=== PATIENT | female | born 1945 | race Caucasian/White ===

== ENCOUNTER → 2016-09-30 | Outpatient (CLI) | payer OTHER ==
[~2016-09-30] MED LIST: ASCA500 PO; ATOR10TA88 PO; CALC600T9 PO; CRAN1CAP PO; ESOM20CA PO; LYSI100010 PO; MULT-1027 PO; OMEG10007 PO; PSYL48.58 PO; SENNTAB23 PO; VTMB122500 PO
== END | disposition home or self-care (01) ==
LOC: C.PAPS 12:00
PROVIDERS: ATTEND Obstetrics & Gynecology
DX: Z12.4 Encounter for screening for malignant neoplasm of cervix (principal)

== ENCOUNTER → 2016-10-02 | Outpatient (CLI) | payer OTHER ==
--- NOTE | 2016-10-02 12:36 | MAMMOGRAPHY REPORT ---
UNILATERAL LEFT DIGITAL DIAGNOSTIC MAMMOGRAM TOMOSYNTHESIS WITH CAD AND TARGETED LEFT ULTRASOUND: 08/2017 CLINICAL HISTORY: The patient reports increasing pain in her left upper outer quadrant for approxima tely 2-3 months. She denies any palpable lumps. TECHNIQUE: Breast tomosynthesis in addition to standard 2D mammography was performed. Current study was also evaluated with a Computer Aided Detection (CAD) system. Left CC and MLO 2-D and tomosynth esis images were obtained. COMPARISON: Comparison is made to exams dated: 07/16/2016 mammogram, 06/26/2014 mammogram, 5 mammogram, 06/23/2013 mammogram, 06/22/2012 mammogram - [facility], and 04/22/2011 [facility]. BREAST COMPOSITION: The tissue of the left breast is heterogeneously dense, which may obscure small masses. FINDINGS: There are no suspicious masses, calcifications, or areas of architectural distortion note d in the left breast. There has been no significant interval change compared to prior exams. Small cluster of benign-appearing calcifications in the left upper outer quadrant is stable. A triangle marker kumar the site of pain in the left upper outer quadrant; no suspicious masses or other suspic ious findings are seen in this region. Targeted ultrasound was performed of the area of pain pointed out by the patient, centered in the le ft breast at 1:00, 8 cm from the nipple. Sonographically normal tissue is seen in this region, with out evidence of a mass or other suspicious sonographic abnormality. IMPRESSION: ACR BI-RADS CATEGORY 2: BENIGN, TARGETED ULTRASOUND ACR BI-RADS CATEGORY 2: BENIGN No suspicious mammographic or sonographic abnormality seen at the site of left breast pain. There i s no mammographic or targeted sonographic evidence of malignancy. Recommend clinical follow-up for left breast pain, and recommend routine bilateral screening mammograms which are due June 2017. The patient has been verbally notified of the results. Approximately 10% of breast cancers are not detected with mammography. A negative mammographic repor t should not delay biopsy if a clinically suggestive mass is present. Shayy Gallegos M.D. ah/:10/02/2016 09:53:23 [facility] Teacher: Marlen Rao RT(R)(M), [facility] letter sent: Normal 1/2 BI-RADS Code: ACR BI-RADS Category 2: Benign Ultrasound BI-RADS: ACR BI-RADS Category 2: Benign
== END | disposition home or self-care (01) ==
LOC: C.MAMM 09:15
PROVIDERS: ATTEND Obstetrics & Gynecology
DX: Z12.31 Encounter for screening mammogram for malignant neoplasm of breast (principal)

== ENCOUNTER → 2016-10-17 | Outpatient (CLI) | payer OTHER ==
--- NOTE | 2016-10-17 12:23 | DIAGNOSTIC IMAGING REPORT ---
LEFT SHOULDER MIN 2 VIEWS CLINICAL HISTORY: LEFT SHOULDER PAIN COMPARISON: None. DISCUSSION: No acute fractures or dislocations are visualized. There is minor glenoid spurring. No destructive lesions are visualized. IMPRESSION: 1. Mild degenerative change. No acute fractures or subluxations identified Electronically signed by: Rakan Walton M.D. 10/17/2016 12:21 PM Dictated Date/Time: 10/17/2016 12:20 PM
== END | disposition home or self-care (01) ==
LOC: C.RDSM 11:15
PROVIDERS: ATTEND Physical Medicine & Rehabilitation Sports Medicine
DX: M25.519 Pain in unspecified shoulder (principal)

== ENCOUNTER → 2017-02-13 | Outpatient (CLI) | payer OTHER ==
[~2017-02-13] MED LIST changes: +ATOR10TA82 PO; -ATOR10TA88 PO
--- NOTE | 2017-02-13 10:27 | DIAGNOSTIC IMAGING REPORT ---
LEFT SHOULDER INJECTION UNDER FLUOROSCOPIC GUIDANCE CLINICAL HISTORY: Left shoulder pain. Injection for MR arthrogram. PROCEDURE: The risks, benefits, and alternatives to the procedure were discussed with the patient. Written informed consent was obtained. The patient was placed supine on the fluoroscopy table, and a left shoulder injection was performed under fluoroscopic guidance. The area was prepped and draped in the usual sterile fashion. The skin and soft tissues anesthetized with local 1% lidocaine. The left shoulder joint was accessed utilizing a 22-gauge needle, and approximately 5 cc of a mixture of gadolinium contrast, Optiray 300, and saline was injected into the joint space under fluoroscopic guidance. There was normal distention of the capsule. The procedure was well tolerated and without immediate complication. The patient was then transferred to MRI for MR arthrography. FLUOROSCOPY TIME: 19 seconds. IMPRESSION: Unremarkable injection of the left shoulder under fluoroscopic guidance. Electronically signed by: Ranjit Kam M.D. 02/13/2017 10:26 AM Dictated Date/Time: 02/13/2017 10:26 AM
--- NOTE | 2017-02-13 11:22 | DIAGNOSTIC IMAGING REPORT ---
MR ARTHROGRAM OF THE LEFT SHOULDER CLINICAL HISTORY: Left shoulder pain. COMPARISON STUDY: Radiographs of the left shoulder dated 10/17/2016. TECHNIQUE: Following the intra-articular administration of gadolinium contrast, MR arthrogram of the left shoulder was performed utilizing various T1 and T2 weighted sequences in the axial, sagittal, coronal planes. Several sequences were repeated due to motion artifact which degrades the examination. FINDINGS: Rotator cuff: There is tendinopathy of the supraspinatous tendon. There is a large full-thickness tear identified. The tear measures approximately 11 mm in length as seen on coronal image #6. There is no musculotendinous retraction. There is also tendinopathy of the infraspinatus tendon with mild degenerative undersurface tearing. The teres minor and subscapularis tendons are intact. Contrast extends into the subacromial and subdeltoid bursae. The acromioclavicular joint is unremarkable. Biceps tendon: There is tendinopathy of the long head of the biceps with mild partial thickness tearing. The majority of the fibers remain intact and the tendon is Located within the bicipital groove. The anchor is maintained. Labrum: There is circumferential labral tearing. Shoulder joint: The joint space is well distended with interstitial reticular contrast. There is contrast seen inferior to the glenohumeral ligament/joint capsule reason concern for a HAGL lesion. The articular cartilage over the glenoid is well maintained. Cystic degenerative change is noted in the greater tuberosity of the humeral head. Musculature and soft tissues: The musculature of the shoulder is normal in bulk and signal intensity. No atrophy is seen. IMPRESSION: 1. There is tendinopathy with a large full-thickness tear of the supraspinatous tendon. No musculotendinous retraction is seen. 2. There is tendinopathy with mild degenerative undersurface tearing of the infraspinatus tendon at the leading edge. 3. Circumference labral tearing 4. Question a HAGL lesion. 5. There is tendinopathy with mild partial thickness tearing of the long head of the biceps tendon. 6. Arthritic change is noted in the greater tuberosity of the humeral head. Electronically signed by: Ranjit Kam M.D. 02/13/2017 11:21 AM Dictated Date/Time: 02/13/2017 11:08 AM
== END ==
LOC: C.MRIBC 09:42
PROVIDERS: ATTEND Physician Assistant
DX: M75.102 Unspecified rotator cuff tear or rupture of left shoulder, not specified as traumatic (principal)

== ENCOUNTER → 2017-05-12 | Day surgery (SDC) | payer OTHER ==
[2017-04-23 10:09] VITALS: Ht 158.8 cm; Wt 68.2 kg
[2017-04-24 13:21] LABS: BASO % 0.4 %; BASO ABS # 0.02 K/uL (0-0.2); COMPLETE YES; EOS % 0.9 %; HEMATOCRIT 40.3 % (37-47); LYMPH % 42.3 %; LYMPH ABS # 1.89 K/uL (1.2-3.4); MEAN CORPUSCULAR HEMOGLOBIN 31.3 pg (25-34); NEUT % 50.4 %; PLATELET COUNT 213 K/uL (130-400); RED BLOOD COUNT 4.38 M/uL (4.2-5.4); WHITE BLOOD COUNT 4.47 K/uL (4.8-10.8)
[2017-04-24 13:51] LABS: BUN/CREATININE RATIO 27.5 (10-20); CALCIUM 8.7 mg/dl (8.5-10.1); CREATININE 0.61 mg/dl (0.60-1.20); POTASSIUM 3.7 mmol/L (3.5-5.1)
[~2017-05-12] VITALS: Ht 158.8 cm; Wt 68.2 kg
[~2017-05-12] MED LIST changes: -ATOR10TA82 PO; +ATOR10TA88 PO; +ATROPINE SULFATE 0.1 MG/ML 5ML SYR IV PRN; +CEFAZOLIN 2000 MG/60 ML D5W IV SCH; +DEXAMETHASONE SOD INJ 4 MG/ML VIAL ONE; +EpHEDrine SULFATE INJ 50 MG/ML AMP IV PRN; +EpHEDrine SULFATE INJ 50 MG/ML AMP ONE; +EpINEphrine HCL INJ 1 MG/ML 5ML SYRINGE ONE; +FENTANYL CITRATE INJ 50 MCG/1 ML 2 ML VIAL IV PRN; +FENTANYL CITRATE INJ 50 MCG/1 ML 2 ML VIAL ONE; +LACTATED RINGER'S 1000ML 1,000 ML IV SCH; +LIDOCAINE HCL 2% 2 ML VIAL (20MG/ML) ONE; +METOCLOPRAMIDE HCL INJ 5 MG/ML 2 ML VIAL IV PRN; +MIDAZOLAM HCL 1 MG/ML 2ML VIAL ONE; +ONDANSETRON INJ 2 MG/ML 2 ML VIAL IV PRN; +ONDANSETRON INJ 2 MG/ML 2 ML VIAL ONE; +OXYCODONE/ACETAMINOPHEN 5-325 TAB PO PRN; +PROPOFOL IV EMULSION 10 MG/ML 20 ML VIAL IV ONE; +ROPIVACAINE 0.5% 5 MG/ML 30 ML VIAL ONE; +SODIUM CHLORIDE 0.9% 1000ML 1,000 ML IV SCH
--- NOTE | 2017-05-12 07:40 | History & Physical Bridge Note ---
H&P Re-Evaluation Bridge Note: I have examined the patient, reviewed the History & Physical and in the interval since the performance of the History & Physical I have noted the following changes of clinical significance: consent obtained.No changes noted
--- NOTE | 2017-05-12 07:41 | Discharge Instructions ---
Discharge Instructions Date of Service May 12, 2017. Visit Reason for Visit: Left Shoulder Rotator Cuff Tear/Impingement Discharge Discharge Diagnosis / Problem: same Discharge Goals Goal(s): Decrease discomfort, Improve function Medications Stopped Medications Name(s): na Restart Stopped Medication(s): use all scripts as directed on label Activity Recommendations Activity Limitations: as noted below Lifting Limitations: until after follow-up appointment Exercise/Sports Limitations: until after follow-up appointment May Resume Sexual Activity: when tolerated Shower/Bathe: keep incision dry Driving or Machine Use: resume 3 days after discharge Anesthesia . Post Anesthesia Instructions: If you have had General Anesthesia or IV Sedation: * Do not drive today. * Resume driving when surgeon permits. * Do not make important decisions or sign legal documents today. * Call surgeon for: 1. Temperature elevations greater than 101 degrees F. 2. Uncontrollable pain. 3. Excessive bleeding. 4. Persistent nausea and vomiting. 5. Medication intolerance (nausea, vomiting or rash). * For nausea and vomiting use only clear liquids such as: tea, soda, bouillon until nausea subsides, then gradually increase diet as tolerated. * If you have any concerns or questions, call your surgeon's office. If physician is unavailable and it is an emergency, call 911 or go to the nearest emergency room. . Instructions / Follow-Up Instructions / Follow-Up The following are instructions to follow after "Shoulder Surgery" including, Acromioplasty, Rotator Cuff Repair and Instability Surgery ACTIVITY RECOMMENDATIONS: * Minimize activity after surgery. * No excessive walking, jogging, sports or laboring. * Return to activity is individualized depending on the patient and type of surgery. * Driving is not permitted until at least your first post operative visit. Please ask your doctor when it is safe to resume driving. * Expect increased discomfort with increased activity. Continue to ice the shoulder as needed. SCHOOL/WORK RECOMMENDATIONS: * You may return to sedentary work or school when you are feeling more comfortable. This is usually 3-7 days after surgery. MEDICATIONS: * You will have a prescription for pain medication and an anti-inflammatory medication after surgery. * Use the pain medication for severe pain and the anti-inflammatory for less severe pain. Once the pain medication has run out, try to use the anti-inflammatory medication. If this is not effective, contact the office for assistance. * The pain medication may cause nausea, constipation and drowsiness. You should see how they affect you before driving or similar activity. * The anti-inflammatory medication may cause stomach upset and bleeding. If this occurs let your doctor know immediately . * Take a stool softener like Colace or a laxative like Senokot to prevent constipation. DIET: * Resume previous diet. SPECIAL CARE: ICE: You have the option of an ice cooler, gel packs or ice bags. * If you have an ice cooler, refer to the instructions for that device. The ice cooler may be used continuously. * If you do not have an ice cooler, you will need to use ice bags or gel packs. Do not apply ice directly to the skin. Use a thin dressing or barbara shirt between the skin and ice bag. Apply ice for 20-30 minutes and repeat every 2-4 hours. This is especially important for the first 7-10 days after surgery. Once the pain improves, use ice as needed. ELEVATION: * You may be more comfortable sleeping in an upright position. Use the sling to elevate your arm. DRESSING: * Your dressing will be changed at your first therapy appointment approximately 4-5 days after surgery. Band-aids, tape strips or gauze may be applied. You may then change your dressing daily. * Reapply dressing followed by the EBIce cooling pad (if chosen) and then the sling. * Always wash your hands prior to touching the incision area. * Once the stitches are removed, you may leave the wound open to air or cover with gauze. * Expect some bloody drainage for the first few days after surgery. * Leave the tape strips, if present, in place for 5-7 days. * Band-aids and gauze may be changed daily. * There may be a gauze pad in your armpit area. This can be changed daily or replaced by a dry washcloth. SLING/BRACE: * You will need to use a sling or brace after surgery. The length of time the sling is used is dependent upon the type of surgery performed. * Arthroscopic Acromioplasty requires use of the sling for 2-4 weeks for comfort. * Labral procedures and Rotator Cuff Repairs require use of the sling for a longer period of time. Please check with your doctor prior to discontinuing the sling. BATHING: * You may shower or sponge-bathe immediately after surgery. The post operative shoulder dressing is mostly water-tight. You may shower right over this dressing, but be reasonably careful not to get the gauze or incision wet. * Once the dressing has been changed on the fourth or fifth day after surgery, you may shower and get the incision wet. * Wash with regular soap and water. * Do not bathe (submerge the incision), soak, swim or use a hot tub until the incision is completely healed over with normal skin and the doctor has given the OK to proceed. * There is no need to apply any ointments, powders or salves to your incision. * Do not apply alcohol or hydrogen peroxide directly to the incision. * Diluted peroxide (50:50 mixture with sterile saline) may be used to clean dried blood from around the incision area. THERAPY: * You will begin therapy four or five days after surgery. * Organized therapy with the therapist is important for the first 2-4 months after surgery depending on the type of procedure. During that time you will attend therapy 1-3 times per week. * You will also need to do daily exercises for range of motion and strength as instructed. * Patients who have a Capsular Shift Procedure will need to abide by temporary range of motion limitations. * Patients having Rotator Cuff Surgery are not allowed to actively lift their arms until 4-6 weeks after surgery. * Please check with your doctor regarding appropriate motion restrictions. FOLLOW UP VISIT: * If not already scheduled, please call the office at to schedule a follow-up appointment for 10 days after surgery and monthly thereafter. Diet Recommendations Recommended Home Diet: resume previous diet Procedures Procedures Performed: see op note Pending Studies Studies pending at discharge: no Medical Emergencies . Who to Call and When: Medical Emergencies: If at any time you feel your situation is an emergency, please call 911 immediately. . Non-Emergent Contact Non-Emergency issues call your: Specialist Call Non-Emergent contact if: temperature is above 101.5 . . "Provider Documentation" section prepared by Asad Noel. .
--- NOTE | 2017-05-12 09:53 | [facility] Post Operative Brief Note ---
Immediate Operative Summary Operative Date May 12, 2017. Pre-Operative Diagnosis LEFT SHOULDER IMPINGEMENT/ROTATOR CUFF TEAR Post-Operative Diagnosis SAME WITH SPONTANEOUS BICEPS RUPTURE Procedure(s) Performed eua/SUBACROMIAL DCOMPRESSION/SMALL ROTATOR CUFF REPAIR Surgeon IVELISSE Sales Assistant Displays Surgeon(s) BRENDON Estimated Blood Loss TRACE Findings SEE OP NOTE Fluids (cc crystalloids) 800CC Specimens NONE Drains NONE Anesthesia GENERAL/BLOCK Complication(s) None Disposition Recovery Room / PACU
--- NOTE | 2017-05-12 10:17 | OPERATIVE REPORT ---
DATE OF OPERATION: 05/12/2017 SURGEON: Dr. Noel. IMAGING ADMINISTRATOR: Roni Ramirez PA-C. No resident or fellow available. PREOPERATIVE DIAGNOSIS: Left shoulder impingement syndrome with rotator cuff tear and biceps tendinopathy. POSTOPERATIVE DIAGNOSIS: Same with spontaneous rupture of long head of biceps and small nonretracted rotator cuff tear. OPERATION PERFORMED: 1. Exam under anesthesia. 2. Diagnostic arthroscopy. 3. Incidental debridement of biceps stump. 4. Subacromial decompression. 5. Small rotator cuff repair. PROCEDURE: The patient appropriately identified, site verified, consent verified. Antibiotics confirmed as being given. The left upper extremity was examined revealing no instability. She was then sterilely prepped and draped in usual routine fashion in the beach chair position. Posterior portal made 2 cm medial and inferior to posterolateral tip of the acromion, the anterior portal made just off the edge of the AC joint. The joint was entered without difficulty. Immediately encountered was a spontaneous rupture of the biceps with a fairly large stump in the joint, this was debrided. The joint was then lightly debrided, one could see the rotator cuff tear from the articular side. This was all anteriorly in the supraspinatus attachment area. There was no other additional pathology noted. There was no major degenerative disease. The subacromial space was then entered and bursectomy completed. The CA ligament was frayed and was released. The AC joint was left alone. The hook of the acromion was flattened. The rotator cuff tear was then debrided, it could be easily identified, it was about a centimeter in size with no retraction, just in the supraspinatus area. This was debrided to a stable bed and down to raw bone and then 2 sutures placed and shuttled anteriorly. The hole made for the anchor in the tuberosity distal to its superior height and then the anchor placed, it was 4.75 anchor with excellent repair to the bed. The arm was then placed through range of motion, there was no retraction of the tear, there were no major dog ears. Some minor bursal tissue was debrided. The wound was then irrigated and then the procedure terminated. All instruments and fluid removed. Portals closed with 3-0 nylon, dressed with Xeroform, 4 x 4 gauze, ABD pads and Ioban dressing. The patient was then transferred to recovery room in satisfactory condition, having tolerated the procedure well. ESTIMATED BLOOD LOSS: Trace. CRYSTALLOID: About 800 mL DEVICES USED: 4.75 anchor screw-in PEEK with 2 suture loops. These were made by [employer]. No DVT prophylaxis required. I attest to the content of the Intraoperative Record and any orders documented therein. Any exception s are noted below.
--- NOTE | 2017-05-12 10:44 | Anesthesia Progress Nt - [facility] ---
Anesthesia Post Op Note Date & Time May 12, 2017 at 10:44 Vital Signs Pain Intensity: 0 Vital Signs Past 12 Hours Date Time Temp Pulse Resp B/P (MAP) Pulse Ox O2 Delivery O2 Flow Rate FiO2 05/12/17 10:30 Room Air 05/12/17 10:12 36.6 86 20 128/70 100 Diffusion Mask 5 05/12/17 08:55 128/81 05/12/17 08:53 58 0 100 05/12/17 08:53 59 4 100 05/12/17 08:50 146/73 05/12/17 08:48 57 0 97 05/12/17 08:48 59 05/12/17 08:45 161/77 05/12/17 08:38 63 0 05/12/17 08:38 62 0 05/12/17 08:33 58 05/12/17 08:23 57 0 05/12/17 08:23 56 0 05/12/17 08:18 52 0 05/12/17 08:08 54 0 05/12/17 08:08 52 0 05/12/17 08:03 59 0 05/12/17 07:31 36.7 57 22 155/79 (104) 95 Room Air Notes Mental Status: alert / awake / arousable, participated in evaluation Pt Amnestic to Procedure: Yes Nausea / Vomiting: adequately controlled Pain: adequately controlled Airway Patency, RR, SpO2: stable & adequate BP & HR: stable & adequate Hydration State: stable & adequate Anesthetic Complications: no major complications apparent
[2017-05-12 11:20] VITALS: TEMP 36.3
[2017-05-12 11:42] VITALS: BP 124/64; PULSE 56; O2SAT 96
--- NOTE | 2017-05-12 13:03 | [facility] Operative Report ---
Operative Report Operative Date May 12, 2017. Pre-Operative Diagnosis LEFT SHOULDER IMPINGEMENT/ROTATOR CUFF TEAR Post-Operative Diagnosis Left shoulder SAME WITH SPONTANEOUS BICEPS RUPTURE Procedure(s) Performed Left shoulder arthroscopy/eua/SUBACROMIAL DCOMPRESSION/SMALL ROTATOR CUFF REPAIR Surgeon IVELISSE Automobile Body Worker Surgeon(s) BRENDON Estimated Blood Loss TRACE Findings Left shoulder biceps tendon rupture, rotator cuff tear, subacromial impingement Fluids (cc crystalloids) 800CC Specimens NONE Drains none Complication(s) None Disposition Recovery Room / PACU Indications This 72-year-old white female presented to the office with complaints of intractable left shoulder pain. She had tried conservative care measures including physical therapy, activity modification, and oral anti-inflammatories without lasting relief. She elected to proceed with surgical intervention after being educated about potential risks and outcomes. Preoperative imaging was obtained. Description of Procedure Patient was administered a regional block and then taken to the operating room where she was given general anesthesia. She was prepped and draped in usual sterile fashion. Please see Dr. Noel's operative report for specifics of the procedure. I was present for the entire case from initial patient positioning through final wound closure. Assistance was provided in patient positioning, arthroscopy, hardware placement and final wound closure. Patient was taken to the recovery room in satisfactory condition. I attest to the content of the Intraoperative Record and any orders documented therein. Any exceptions are noted below.
== END | disposition home or self-care (01) ==
LOC: X.SURG 07:05
PROVIDERS: ATTEND Physical Medicine & Rehabilitation Sports Medicine
DX: M75.42 Impingement syndrome of left shoulder (principal); M66.812 Spontaneous rupture of other tendons, left shoulder; M75.112 Incomplete rotator cuff tear or rupture of left shoulder, not specified as traumatic; E78.00 Pure hypercholesterolemia, unspecified; Z79.899 Other long term (current) drug therapy

== ENCOUNTER → 2017-06-22 | Outpatient (CLI) | payer OTHER ==
[~2017-06-22] MED LIST changes: -ATROPINE SULFATE 0.1 MG/ML 5ML SYR IV PRN; -CEFAZOLIN 2000 MG/60 ML D5W IV SCH; -DEXAMETHASONE SOD INJ 4 MG/ML VIAL ONE; -EpHEDrine SULFATE INJ 50 MG/ML AMP IV PRN; -EpHEDrine SULFATE INJ 50 MG/ML AMP ONE; -EpINEphrine HCL INJ 1 MG/ML 5ML SYRINGE ONE; -FENTANYL CITRATE INJ 50 MCG/1 ML 2 ML VIAL IV PRN; -FENTANYL CITRATE INJ 50 MCG/1 ML 2 ML VIAL ONE; -LACTATED RINGER'S 1000ML 1,000 ML IV SCH; -LIDOCAINE HCL 2% 2 ML VIAL (20MG/ML) ONE; -METOCLOPRAMIDE HCL INJ 5 MG/ML 2 ML VIAL IV PRN; -MIDAZOLAM HCL 1 MG/ML 2ML VIAL ONE; -OMEG10007 PO; -ONDANSETRON INJ 2 MG/ML 2 ML VIAL IV PRN; -ONDANSETRON INJ 2 MG/ML 2 ML VIAL ONE; -OXYCODONE/ACETAMINOPHEN 5-325 TAB PO PRN; -PROPOFOL IV EMULSION 10 MG/ML 20 ML VIAL IV ONE; -ROPIVACAINE 0.5% 5 MG/ML 30 ML VIAL ONE; -SODIUM CHLORIDE 0.9% 1000ML 1,000 ML IV SCH
--- NOTE | 2017-06-22 09:55 | DIAGNOSTIC IMAGING REPORT ---
L SHOULDER MIN 2 VIEWS CLINICAL HISTORY: 72 years-old Female presenting with LEFT SHOULDER PAIN. TECHNIQUE: External rotation, transscapular Y, and axillary views of the left shoulder were obtained. COMPARISON: 10/17/2016. FINDINGS: Glenohumeral and acromioclavicular joints congruent. No acute fracture or malalignment. No severe degenerative change. Regional soft tissues normal. Visualized portion of the left lung clear. IMPRESSION: No acute osseous injury of the left shoulder. Electronically signed by: Mundo Ga M.D. 06/22/2017 9:53 AM Dictated Date/Time: 06/22/2017 9:52 AM
== END | disposition home or self-care (01) ==
LOC: C.RDSM 13:43
PROVIDERS: ATTEND Physician Assistant
DX: M25.512 Pain in left shoulder (principal)